=== PATIENT | female | born 1965 | race American Indian/Alaskan Native ===

== ENCOUNTER 2017-02-05 07:36 | Outpatient (CLI) | payer OTHER ==
--- NOTE | 2017-02-05 11:57 | Magnetic Resonance Report ---
MRI PELVIS WITH AND WITHOUT CONTRAST INDICATION: Uterine fibroids. COMPARISON: None similar at this institution. FINDINGS: Multiplanar and multisequence MRI of the pelvis performed before and after 15 mL Multihance intravenously demonstrates diffuse heterogeneous uterine enhancement with multiple myomas, some nonenhancing. Uterus approximately 25 cm craniocaudal with its dome extending approximately 11 cm above the umbilicus on the left. Uterus also estimated at 10 cm AP x 20 cm transverse as on axial image 30, series 8. Few nonenhancing, though predominantly solid, heterogeneous fibroids are as follows: 1. Largest such fibroid on the left is approximately 7 x 10 x 13.5 cm, axial image 32, series 8. 2. Multiple, at least 9 other smaller fibroids scattered throughout the remainder uterus range between 1-6 cm. A lower uterine segment 4.7 cm fibroid posteriorly as on axial image 21 appears to slightly displace the endometrial canal containing minimal fluid anteriorly as on sagittal image 26. Myomatous uterus may displace lower abdominal/pelvic bowel loops. No bowel obstruction however. No ascites. Right kidney asymmetrically atrophic at approximately 7.5 cm in length and demonstrates a 3.7 cm cyst superiorly. Non hydronephrotic left kidney with slight renal lobulations and an approximately 1.7 cm slightly complex upper to mid cyst laterally, axial image 51, series 4 with possible intrinsic calcification. Normal bowel, marrow and muscle signal. Normal imaged urinary bladder. No pelvic free fluid. Few small nabothian cysts. Ovaries difficult to clearly identify, though possibly seen as on axial image 16, series 4 on the right and image 14 on the left. CONCLUSION: 1. Moderately enlarged, diffusely myomatous uterus with few nonenhancing fibroids as well, as detailed above. 2. Other findings, including asymmetrically atrophic right kidney, right renal simple cyst and possibly mildly complex left renal cyst, as described. Thank you for the opportunity to participate in this patient's care.
== END 2017-02-05 07:37 | disposition home or self-care (01) ==
LOC: MRI 07:36
PROVIDERS: ATTEND Internal Medicine
DX: D25.9 Leiomyoma of uterus, unspecified (principal); N28.1 Cyst of kidney, acquired; N26.1 Atrophy of kidney (terminal); N88.8 Other specified noninflammatory disorders of cervix uteri
CPT/HCPCS: 72197; A9577